=== PATIENT | female | born 1960 | race Hispanic/Latino ===

== ENCOUNTER → 2025-02-18 | Day surgery (SDC) | payer OTHER ==
[~2025-02-18] MED LIST: ATORVASTATIN CA20 MG PO; FENTANYL CITRATE/PF 100MCG/2 ML INJ ONE; GLIMEPIRIDE2 MG PO; GLYCOPYRROLATE INJ 0.2 MG/ML VIAL ONE; HYDROCHLOROTH12.5 MG PO; HYOSCYAMINE SULFATE 0.5 MG/ML INJ ONE; LIDOCAINE HCL 2% LOCAL INJ 5 ML SDV VIAL INJ ONE; METFORMIN HCL500 M2 PO; PROPOFOL IV EMULSION 50 ML IV ONE; ZESTRIL10 MG PO
[2025-02-18] MEDS: LACTATED RINGER'S 1,000 ML ONE (11:34)
[2025-02-18] MEDS: INSULIN REGULAR, HUMAN 100 UNIT/1 ML ONE (11:36)
[2025-02-18 12:54] VITALS: TEMP 99.1
[2025-02-18 13:15] VITALS: BP 108/70; PULSE 90; RESP 18; O2SAT 97
== END | disposition home or self-care (01) ==
LOC: OR 10:40
PROVIDERS: ATTEND Internal Medicine Gastroenterology
DX: Z12.11 Encounter for screening for malignant neoplasm of colon (principal); K64.8 Other hemorrhoids; E11.9 Type 2 diabetes mellitus without complications; I10 Essential (primary) hypertension; Z71.89 Other specified counseling; E78.00 Pure hypercholesterolemia, unspecified; Z01.810 Encounter for preprocedural cardiovascular examination; Z79.84 Long term (current) use of oral hypoglycemic drugs; Z79.899 Other long term (current) drug therapy; Z68.30 Body mass index [BMI] 30.0-30.9, adult; Z71.3 Dietary counseling and surveillance
CPT/HCPCS: 36415; 45378; 82948; 93005; J1980; J2003